=== PATIENT | female | born 1985 | race Hispanic/Latino ===

== ENCOUNTER → 2018-04-04 | Day surgery (SDC) | payer OTHER ==
[~2018-04-04] MED LIST: DICYCLOMINE PO; LIDOCAINE HCL 2% LOCAL INJ 5 ML SDV VIAL INJ ONE; METOCLOPRAMIDE HCL 10 MG/2ML VIAL ONE; MIDAZOLAM HCL 2 MG/2 ML VIAL ONE; OMEPRAZOLE PO; PANTOPRAZOLE 40 MG 10ML VIAL ONE; PROPOFOL IV EMULSION 10 MG/ML 50 ML VIAL ONE
--- OUTSIDE RECORDS SUMMARY | 2018-04-04 09:13 | XMS REPORT | Encounter Summary ---
Author Organization Unknown Address [address] [place] [address] Phone [phone] Reason for Visit Medical Complaint Instructions 1. Allergic rhinitis allergies: care instructions 2. Influenza-like symptoms rapid flu (A+B) 3. Pain in throat sore throat: care instructions rapid strep group A, throat 4. Allergic cough benzonatate 200 mg capsule Discussion Note Pt is in NAD; Verbalizes understanding of all instructions with no questions at this time. Plan of Care Patient Instructions Take fluticasone over the counter as needed for congestion. [place] one spray in each nostril twice a day. Take a warm, steamy shower, blow your nose thereafter, and spray in each nostril. Tilt your head up for about 10 seconds and breath through your mouth. Do not sniff or snort the medication in or else the medication will go to your throat and not be absorbed appropriately. Take over the counter Xyzal for allergy like symptoms like runny nose, sneezing and watery eyes. Take benzonatate for cough as directed. Take medications as prescribed and follow up with a PCP within 2-3 if symptoms worsen as discussed. Reminders Provider Appointments None recorded. Lab Rapid Flu (A+B) 06/07/2017 [facility] Rapid Strep Group a, Throat 06/07/2017 [facility] Referral None recorded. Procedures None recorded. Surgeries None recorded. Imaging None recorded. Medications Name Start Date benzonatate 200 mg capsule Take 1 capsule 3 times a day by oral route as needed. Medications Administered None recorded. Vitals Height Weight BMI Blood Pressure 5 ft 4 in 125 lbs 21.5 kg/m2 110/78 mm[Hg] Lab Results Date Name Specimen Result Interpretation Description Value Range Status Address 06/07/2017 Rapid Strep Group a, Throat Result negative [facility]: [address] [place] [address] Swab Location Left and Right tonsillar pillars [facility]: [address] [place] [address] Rapid Flu (A+B) Influenza a negative [facility]: [address] [place] [address] Influenza B negative [facility]: [facility] Allergies Code Code System Name Reaction Severity Status Onset NKDA Problems Name Status Onset Date Source Pain in Throat Active 06/07/2017 Allergic Rhinitis Active 06/07/2017 Influenza-like Symptoms Active 06/07/2017 Allergic Cough Active 06/07/2017 Procedures None recorded. Vaccine List Vaccine Type influenza, seasonal, injectable 01/27/2012 meningococcal MCV4P 11/24/2012 Social History Smoking Status Never Smoker Past Encounters 06/07/2017 Allergic Rhinitis; Influenza-like Symptoms; Pain in Throat; Allergic Cough Marie Fletcher, [facility]-C: [address] [place] [address], Ph. History of Present Illness Dtwwm-Yganbtlfrj-Smghsqk Reported By: Patient HPI: Location: head/sinuses, throat, chest. Quality: sore throat, nasal/sinus congestion, dry cough. Duration: 3days. Severity: moderate. Onset/Timing: gradual. Context: no sick contacts, no foreign travel, non-smoker, allergies. Modifying factors: ; Pt does not take any allergy meds. Associated Symptoms: no sputum production, no shortness of breath, no wheezing, no change in number of pillows needed to sl eep at night, no sweats, no significant weight gain, no significant weight loss, no morning cough, no vomiting, no diarrhea, no rash, no nausea, no fever, no muscle aches, no headache, sore throat; nasal congestion and dry cough Review of Systems:ROS as noted in the HPI Review of Systems Basic Reported By: Patient Physical Exam Adult Basic, Adult Female Complete Reported By: Patient Constitutional: General Appearance: healthy-appearing, well-nourished, well-developed. Level of Distress: NAD. Ambulation: ambulating normally Psychiatric: Mental Status: active and alert. Orientation: to time, to place, to person Eyes: Lids and Conjunctivae: non-injected, no discharge, no pallor. Pupils: PERRLA Ncj-Zmjm-Xocmh-Throat: Ears: no lesions on external ear, no outer ear tenderness, EACs clear, TMs clear. Hearing: no hearing loss. Nose: no lesions on external nose, nares patent, no septal deviation, nasal passages clear, no sinus tenderness, nasal discharge--rhinorrhea, post nasal drip; B/L NTs pale and edematous. Lips, Teeth, and Gums: no mouth or lip ulcers, no bleeding gums, normal dentition. Oropharynx: moist mucous membranes, no erythema, no exudates, tonsils not enlarged Neck: Neck: supple. Lymph Nodes: no cervical LAD Lungs: Respiratory effort: no dyspnea, no tachypnea, no use of accessory muscles, no intercostal retractions. Auscultation: breath sounds normal Cardiovascular: Heart Auscultation: RRR, no murmurs Neurologic: Gait and Station: normal gait, normal station. Cranial Nerves: grossly intact
--- OUTSIDE RECORDS SUMMARY | 2018-04-04 09:13 | XMS REPORT ---
Author Author Lizbeth Mckeon Organization [employer] Address Unknown Phone Unavailable Care Team Providers Care Heat Treat Furnace Operator Name Role Phone Mike Lizbeth CP Unavailable Allergies, Adverse Reactions, Alerts Substance Reaction Event Type N.K.D.A. Info Not Available Non Drug Allergy Encounters Encounter Location Date New patient here with complaints of acne [facility] Primary Care May 11, 2016 Unknown [facility] May 14, 2016 patient here to follow up on acne [facility] May 24, 2016 Problems Problem Type Condition ICD-9 Code Onset Dates Condition Status Problem Lack of appetite R63.0 Active Problem Other fatigue R53.83 Active Problem Low vitamin D level E55.9 Active Assessment Other fatigue R53.83 Active Assessment Low vitamin D level E55.9 Active Medications Medication Code System Code Instructions Start Date End Date Status Dosage Ergocalciferol [facility] [id number] UNIT Orally Once a week May 14, 2016 June 13, 2016 Active 1 capsule Social History Social History Element Qualifiers Date Reported Smoke Exposure: . Second Hand Smoke Exposure: No May 24, 2016 Tobacco Use: . Are you a: never smoker May 24, 2016 Use of recreational / street drugs? . Answer: No May 24, 2016 Do you have pets? . Status: No May 24, 2016 Caffeine intake? . Status: Yes, What type: Coffee, Soft Drinks, How often? Weekly May 24, 2016 Do you exercise? . Answer: No May 24, 2016 Do you drink alcohol? . Status: Yes, How often? Once per week May 24, 2016 Vital Signs Date/Time: May 24, 2016 Weight 132.6 lbs Height 65 in Temperature 98.1 F Cardiac Monitoring Heart Rate 62 /min Blood Pressure Diastolic 74 mm Hg Blood Pressure Systolic 115 mm Hg Summary Purpose eClinicalWorks Submission
--- OUTSIDE RECORDS SUMMARY | 2018-04-04 09:13 | XMS REPORT | Encounter Summary ---
Author Organization Unknown Address [address] [place] [address] Phone [phone] Reason for Visit Medical Complaint Instructions 1. Acute pharyngitis sore throat: care instructions rapid strep group A, throat culture, respiratory methylprednisolone 4 mg tablets in a dose pack 2. Cough cough: care instructions benzonatate 200 mg capsule Discussion Note Pt is in NAD; Verbalizes understanding of all instructions with no questions at this time. Plan of Care Patient Instructions Take fluticasone over the counter as needed for congestion, runny nose and post nasal drip. [place] one spray in each nostril twice a day. Take a warm, steamy shower, blow your nose thereafter, and spray in each nostril. Tilt your head up for about 10 seconds and breath through your mouth. Do not sniff or snort the medication in or else the medication will go to your throat and not be absorbed appropriately. Take steroid taper as directed and with food to avoid heartburn. Take benzonatate for cough as directed. Take medications as prescribed and follow up with a PCP within 2-3 if symptoms worsen as discussed. We will call you with your lab results. Reminders Provider Appointments None recorded. Lab Rapid Strep Group a, Throat 09/05/2017 [facility] Culture, Respiratory 09/05/2017 [facility] Referral None recorded. Procedures None recorded. Surgeries None recorded. Imaging None recorded. Medications Name Start Date benzonatate 200 mg capsule Take 1 capsule 3 times a day by oral route as needed. methylprednisolone 4 mg tablets in a dose pack Take PO as directed Medications Administered None recorded. Vitals Height Weight BMI Blood Pressure 5 ft 4 in 123 lbs 21.1 kg/m2 100/70 mm[Hg] Lab Results Date Name Specimen Result Interpretation Description Value Range Status Address Rapid Strep Group a, Throat Result negative [facility]: [address] [place] [address] Swab Location Left and Right tonsillar pillars [facility]: [address] [place] [address] Allergies Code Code System Name Reaction Severity Status Onset NKDA Problems Name Status Onset Date Source Acute Pharyngitis Active 09/05/2017 Cough Active 09/05/2017 Procedures None recorded. Vaccine List Vaccine Type influenza, seasonal, injectable 01/27/2012 meningococcal MCV4P 11/24/2012 Social History Smoking Status Never Smoker Past Encounters 09/05/2017 Acute Pharyngitis; Cough Marie Fletcher, POWER SWEEPER OPERATOR-C: [address] [place] [address], Ph. History of Present Illness Throat-Oral Complaint Reported By: Patient HPI: Location: throat. Quality: sore throat, dry or hacking cough. Severity: moderate, pain level 6/10. Duration: 3 days. Onset/Timing: sudden. Context: no sick contacts, no foreign travel, non-smoker, allergies. Modifying factors: ; has not taken anything. Associated Symptoms: no fever, no headache, no body aches, no sputum production, no shortness of breath, no wheezing, no change in number of pillows needed to sleep at night, no sweats, no significant weight gain, no significant weight loss, no morning cough, no vomiting, no diarrhea, no rash, no nausea, sore throat; dry cough Review of Systems Basic Reported By: Patient Constitutional: Constitutional: no fever Eyes: Eyes: no eye complaints Zslh-Tqew-Tuzyq-Throat: Ears: no ear complaints. Nose: no nose/sinus problems. Mouth/Throat: no bleeding gums, no mouth complaints, no teeth problems, sore throat Cardiovascular: Cardiovascular: no chest pain, no shortness of breath, no known heart murmur Respiratory: Respiratory: no wheezing, no shortness of breath, cough Gastrointestinal: Gastrointestinal: no abdominal pain, no vomiting / diarrhea Genitourinary: Genitourinary: no urinary complaints, no discharge Musculoskeletal: Musculoskeletal: no muscle aches, no muscle weakness, no arthralgias/joint pain, no back pain Skin: Skin: no abnormal / changing mole, no jaundice, no rashes Neurologic: Neurologic: no loss of consciousness, no weakness, no numbness, no seizures, no dizziness, no headaches Physical Exam Adult Basic, Adult Female Complete Reported By: Patient Constitutional: General Appearance: healthy-appearing, well-nourished, well-developed. Level of Distress: NAD. Ambulation: ambulating normally Psychiatric: Mental Status: active and alert. Orientation: to time, to place, to person Jme-Bage-Acdim-Throat: Ears: no lesions on external ear, no outer ear tenderness, EACs clear, TMs clear. Hearing: no hearing loss. Nose: no lesions on external nose, nares patent, no septal deviation, nasal passages clear, no sinus tenderness, no nasal discharge. Lips, Teeth, and Gums: no mouth or lip ulcers, no bleeding gums, normal dentition. Oropharynx: moist mucous membranes, no exudates, tonsils not enlarged, erythema Neck: Lymph Nodes: no cervical LAD, no supraclavicular LAD Lungs: Respiratory effort: no dyspnea, no tachypnea, no use of accessory muscles, no intercostal retractions. Auscultation: breath sounds normal Cardiovascular: Heart Auscultation: RRR, no murmurs Neurologic: Gait and Station: normal gait, normal station
--- OUTSIDE RECORDS SUMMARY | 2018-04-04 09:13 | XMS REPORT ---
Author Author Lizbeth Mckeon Organization [employer] Address Unknown Phone Unavailable Care Team Providers Care Regional Liaison Name Role Phone Lizbeth Mckeon CP Unavailable Allergies No Known Allergies Problems Problem Type Condition Code Onset Dates Condition Status Problem Low vitamin D level E55.9 Active Problem Other fatigue R53.83 Active Problem Amenorrhea N91.2 Active Problem Lack of appetite R63.0 Active Medications Medication Code System Code Instructions Start Date End Date Status Dosage Ergocalciferol [facility] [id number] UNIT Orally once a week Oct 30, 2017 Nov 29, 2017 Active 1 capsule Results No Known Results Summary Purpose eClinicalWorks Submission
--- OUTSIDE RECORDS SUMMARY | 2018-04-04 09:13 | XMS REPORT ---
Author Author Lizbeth Mckeon [facility] eClinical[employer] Address Unknown Phone Unavailable Care Team Providers Care Packing Clerk Name Role Phone Lizbeth Mckeon Unavailable Encounters Encounter Location Date medication [facility] May 25, 2016 New patient here with complaints of acne [facility] May 11, 2016 Unknown [facility] May 14, 2016 patient here to follow up on acne [facility] May 24, 2016 Problems Problem Type Condition ICD-9 Code Onset Dates Condition Status Problem Lack of appetite R63.0 Active Problem Other fatigue R53.83 Active Problem Low vitamin D level E55.9 Active Social History Social History Element Qualifiers Date [...] often? Once per week May 24, 2016 Summary Purpose eClinicalWorks Submission
--- OUTSIDE RECORDS SUMMARY | 2018-04-04 09:13 | XMS REPORT ---
Author Author Lizbeth Mckeon Organization [employer] Address Unknown Phone Unavailable Care Team Providers Care Division Supervisor Name Role Phone Lizbeth Mckeon CP Unavailable Allergies No Known Allergies Problems Problem Type Condition Code Onset Dates Condition Status Problem Low vitamin D level E55.9 Active Problem Other fatigue R53.83 Active Problem Amenorrhea N91.2 Active Problem Lack of appetite R63.0 Active Medications No Known Medications Results No Known Results Summary Purpose [employer]ClinicalWorks Submission
--- OUTSIDE RECORDS SUMMARY | 2018-04-04 09:13 | XMS REPORT ---
Author Author Lizbeth Mckeon Organization [employer] Address Unknown Phone Unavailable Care Team Providers Care Crushing Mill Operator Name Role Phone Mike, Lizbeth CP Unavailable Allergies, Adverse Reactions, Alerts Substance Reaction Event Type N.K.D.A. Info Not Available Non Drug Allergy Encounters Encounter Location Date New patient here with complaints of acne [facility] May 11, 2016 Problems Problem Type Condition ICD-9 Code Onset Dates Condition Status Problem Other fatigue R53.83 Active Assessment Annual physical exam Z00.00 Active Problem Lack of appetite R63.0 Active Assessment Other fatigue R53.83 Active Assessment Lack of appetite R63.0 Active Social History Social History Element Qualifiers Date Reported Smoke Exposure: . Second Hand Smoke Exposure: No May 11, 2016 Tobacco Use: . Are you a: never smoker May 11, 2016 Use of recreational / street drugs? . Answer: No May 11, 2016 Do you have pets? . Status: No May 11, 2016 Caffeine intake? . Status: Yes, What type: Coffee, Soft Drinks, How often? Weekly May 11, 2016 Do you exercise? . Answer: No May 11, 2016 Do you drink alcohol? . Status: Yes, How often? Once per week May 11, 2016 Vital Signs Date/Time: May 11, 2016 Weight 134.5 lbs Height 65 in Temperature 97.5 F Cardiac Monitoring Heart Rate 67 /min Blood Pressure Diastolic 75 mm Hg Blood Pressure Systolic 117 mm Hg Immunizations Vaccine Administration Date FLU SHOT 3 & UP May 11, 2016 Summary Purpose eClinicalWorks Submission
--- OUTSIDE RECORDS SUMMARY | 2018-04-04 09:13 | XMS REPORT ---
Author Author Lizbeth Mckeon Organization [employer] Address Unknown Phone Unavailable Care Team Providers Care Wall Taper Helper Name Role Phone Lizbeth Mckeon CP Unavailable Allergies, Adverse Reactions, Alerts Substance Reaction Event Type N.K.D.A. Info Not Available Non Drug Allergy Problems Problem Type Condition Code Onset Dates Condition Status Problem Low vitamin D level E55.9 Active Problem Other fatigue R53.83 Active Problem Amenorrhea N91.2 Active Assessment Amenorrhea N91.2 Active Assessment Concern about STD in female without diagnosis Z71.1 Active Problem Lack of appetite R63.0 Active Assessment Annual physical exam Z00.00 Active Medications No Known Medications Vital Signs Date/Time: October 28, 2017 BMI 21.40 Index Weight 128.6 lbs Height 65 in Temperature 97.7 F Cardiac Monitoring Heart Rate 76 /min Blood Pressure Diastolic 70 mm Hg Blood Pressure Systolic 113 mm Hg Results No Known Results Summary Purpose eClinicalWorks Submission
--- OUTSIDE RECORDS SUMMARY | 2018-04-04 09:13 | XMS REPORT ---
Author Author [facility] Address Unknown Phone Unavailable Care Team Providers Care Net Finisher Name Role Phone Unavailable Unavailable Payers Payer Name Policy Type Policy Number Effective Date Expiration Date Problems This patient has no known problems. Allergies, Adverse Reactions, Alerts Allergy Name Allergy Type Status Severity Reaction(s) Onset Date Inactive Date Treating Clinician Comments No Known Allergies DA Active U 2014-08-28 00:00:00 Medications This patient has no known medications.
--- OUTSIDE RECORDS SUMMARY | 2018-04-04 09:13 | XMS REPORT | Continuity of Care Document ---
Author Author [facility] Interface Address Unknown Phone Unavailable Problems Problem Status Onset Date Classification Date Reported Comments Source Acute pharyngitis 09/05/2017 Diagnosis 09/05/2017 [facility] Acute Pharyngitis 09/05/2017 Problem 09/05/2017 [facility] Cough 09/05/2017 Problem 09/05/2017 [facility] Influenza-like symptoms 06/07/2017 Diagnosis 06/07/2017 [facility] Allergic cough 06/07/2017 Diagnosis 06/07/2017 [facility] Pain in throat 06/07/2017 Diagnosis 06/07/2017 [facility] Allergic rhinitis 06/07/2017 Diagnosis 06/07/2017 [facility] Pain in Throat 06/07/2017 Problem 06/07/2017 [facility] Allergic Rhinitis 06/07/2017 Problem 06/07/2017 [facility] Influenza-like Symptoms 06/07/2017 Problem 06/07/2017 [facility] Allergic Cough 06/07/2017 Problem 06/07/2017 [facility] Low vitamin D level Active Problem 11/05/2017 [facility] Primary Other fatigue Active Problem 11/05/2017 [facility] Primary Amenorrhea Active Problem 11/05/2017 [facility] Primary Lack of appetite Active Problem 11/05/2017 [facility] Primary Concern about STD in female without diagnosis Active Diagnosis 10/29/2017 [facility] Primary Medications Medication Details Route Status Patient Instructions Ordering Provider Order Date Source Ergocalciferol 1 capsule Orally Active 45123 UNIT Orally once a week Mike 10/30/2017 [facility] Primary Ergocalciferol 1 capsule Orally Active 09063 UNIT Orally Once a week Mike 05/14/2016 [facility] Primary benzonatate 200 MG Oral Capsule benzonatate 200 mg capsule Take 1 capsule 3 times a day by oral route as needed. Active [facility] methylprednisolone 4 mg tablets in a dose pack methylprednisolone 4 mg tablets in a dose pack Take PO as directed Active [facility] Allergies, Adverse Reactions, Alerts Substance Category Reaction Severity Reaction type Status Date Reported Comments Source N.K.D.A. Adverse Reaction Info Not Available Adverse Reaction Active 10/28/2017 [facility] Primary Immunizations Immunization Date Given Site Status Last Updated Comments Source FLU SHOT 3 & UP 05/11/2016 completed [facility] Primary meningococcal MCV4P 11/25/2012 completed [facility] influenza, seasonal, injectable 01/27/2012 completed [facility] Results Order Name Results Value Reference Range Date Interpretation Comments Source RESULT negative 09/05/2017 [facility] SWAB LOCATION Left and Right tonsillar pillars 09/05/2017 [facility] RESULT negative 06/07/2017 [facility] SWAB LOCATION Left and Right tonsillar pillars 06/07/2017 [facility] Influenza A negative 06/07/2017 [facility] Influenza B negative 06/07/2017 [facility] Vital Signs Vital Sign Value Date Comments Source Weight 128.6 10/28/2017 [facility] Primary Height 65 10/28/2017 [facility] Primary Temperature Oral (F) 97.7 F 10/28/2017 [facility] Primary Heart Rate 76 10/28/2017 [facility] Primary Diastolic (mm Hg) 70 10/28/2017 [facility] Primary Systolic (mm Hg) 113 10/28/2017 [facility] Primary Diastolic (mm Hg) 70 09/05/2017 [facility] Height 64 09/05/2017 [facility] Systolic (mm Hg) 100 09/05/2017 [facility] Weight 123 09/05/2017 [facility] Diastolic (mm Hg) 78 06/07/2017 [facility] Height 64 06/07/2017 [facility] Systolic (mm Hg) 110 06/07/2017 [facility] Weight 125 06/07/2017 [facility] Weight 132.6 05/24/2016 [facility] Primary Height 65 05/24/2016 [facility] Primary Temperature Oral (F) 98.1 F 05/24/2016 [facility] Primary Heart Rate 62 05/24/2016 [facility] Primary Diastolic (mm Hg) 74 05/24/2016 [facility] Primary Systolic (mm Hg) 115 05/24/2016 [facility] Primary Weight 134.5 05/11/2016 [facility] Primary Height 65 05/11/2016 [facility] Primary Temperature Oral (F) 97.5 F 05/11/2016 [facility] Primary Heart Rate 67 05/11/2016 [facility] Primary Diastolic (mm Hg) 75 05/11/2016 [facility] Primary Systolic (mm Hg) 117 05/11/2016 [facility] Primary Encounters Location Location Details Encounter Type Encounter Number Reason For Visit Attending Provider ADM Date DC Date Status Source [facility] New patient here with complaints of acne [id number] 05/11/2016 05/11/2016 [facility] New patient here with complaints of acne [id number] 05/11/2016 05/11/2016 [facility] New patient here with complaints of acne [id number] 05/11/2016 05/11/2016 [facility] New patient here with complaints of acne [id number] 05/11/2016 05/11/2016 [facility] Unknown [id number] 05/14/2016 05/14/2016 [facility] Care Unknown [id number] 05/14/2016 05/14/2016 [facility] Unknown [id number] 05/14/2016 05/14/2016 [facility] patient here to follow up on acne [id number] 05/24/2016 05/24/2016 [facility] patient here to follow up on acne [id number] 05/24/2016 05/24/2016 [facility] medication [id number] 05/25/2016 05/25/2016 [facility] [place] [facility] - [id number] LaresP-C: [address] [place] [address], Ph. [id number] Marie Fletcher 06/07/2017 [facility] [place] [facility] - [id number] Fletcher, THERAPEUTIC SUPPORT STAFF-C: [address], [place] [address], Ph. [id number] Marie Fletcher 09/05/2017 [facility] Procedures Procedure Code Date Perfomer Comments Source
--- OUTSIDE RECORDS SUMMARY | 2018-04-04 09:13 | XMS REPORT ---
Author Author Lizbeth Mckeon Organization [employer] Address Unknown Phone Unavailable Care Team Providers Care [employer] Name Role Phone Lizbeth Mckeon Unavailable Encounters Encounter Location Date New patient here with complaints of acne [facility] May 11, 2016 Unknown [facility] May 14, 2016 Problems Problem Type Condition ICD-9 Code Onset Dates Condition Status Problem Other fatigue R53.83 Active Problem Lack of appetite R63.0 Active Medications Medication Code System Code Instructions Start Date End Date Status Dosage Ergocalciferol MEDISPAN [id number] UNIT Orally Once a week May 14, [...] often? Once per week May 11, 2016 Summary Purpose [employer] Submission
[2018-04-04 13:15] VITALS: BP 111/72
--- NOTE | 2018-04-04 16:27 | Operative Report ---
DATE OF PROCEDURE: April 04, 2018 PROCEDURE PERFORMED: Esophagogastroduodenoscopy with biopsies. INDICATIONS FOR PROCEDURE: Epigastric pain, early satiety and bloating. MEDICATION: Patient was done under MAC. Please see anesthesiologist's note. PROCEDURE: With the patient in the left latera decubitus position, the flexible fiberoptic Olympus gastroscope was introduced into the esophagus under direct visualization without any difficulty. There was some patchy erythema noted in the distal esophagus. The scope was then advanced with ease into the stomach. Mucosa overlying the antrum and the body revealed some patchy erythema and low-grade to moderate edema. Biopsies were obtained and sent to stain for H. pylori. There was an approximately 4 mm umbilicated lesion in the antrum that was biopsied. Some hyperplastic appearing polyps were noted in the body of the stomach and some were partially excised with the cold biopsy forceps. Pylorus appeared to be of normal contour and shape. It was intubated with ease. The scope was advanced all the way to the 2nd portion of the duodenum. The scope was then withdrawn slowly. Mucosa overlying the proximal 2nd portion grossly appeared to be within normal limits. Biopsies were obtained to rule out sprue. Mucosa overlying the duodenal bulb appeared to be within normal limits. The scope was then withdrawn back into the stomach and retroflexed. The mucosa overlying the fundus and the cardia appeared to be within normal limits. The scope was then straightened out. It was subsequently withdrawn. Patient tolerated the procedure well. IMPRESSION 1. Distal esophagitis, mild. 2. Gastric polyps, hyperplastic appearing, some partially excised with cold biopsy forceps. 3. Gastritis, biopsied. Biopsies sent to stain for Helicobacter pylori. 4. Gastric antrum approximately 4 mm umbilicated lesion, biopsied. 5. Rule out sprue. PLAN: Follow up histology. Initiate Protonix 40 mg 1 p.o. q.a.m. a.c. Job#: [id number] [place]
== END | disposition home or self-care (01) ==
LOC: OR 09:11
PROVIDERS: ATTEND Internal Medicine Gastroenterology
DX: K29.50 Unspecified chronic gastritis without bleeding (principal); K31.7 Polyp of stomach and duodenum; K29.80 Duodenitis without bleeding; K20.9 Esophagitis, unspecified; K31.89 Other diseases of stomach and duodenum; K21.9 Gastro-esophageal reflux disease without esophagitis
CPT/HCPCS: 43239; 81025; J2001; J2250; J2765